=== PATIENT | male | born 1940 | race Two or more races ===

== ENCOUNTER → 2016-12-20 | Outpatient (CLI) | payer MEDICARE ==
--- NOTE | 2016-12-20 11:03 | MR ---
EXAMINATION TYPE: MR brain wo/w con DATE OF EXAM: 12/20/2016 COMPARISON: Patient's previous exams are not available correlation, exam is correlated to report of elba tong brain MRI HISTORY: syncope , ataxic gaiting TECHNIQUE: Multiplanar, multisequence images of the brain and brainstem is performed without and with IV contras t, utilizing 15 mL intravenous MultiHance . FINDINGS: Diffusion weighted images demonstrate no evidence of a recent infarct or other diffusion ab normality. There is no extra-axial fluid collection. Periventricular confluent hyperintensity and T 2 and inversion recovery sequences, hyperintensity within the john and centrum semiovale noted. There is cortical atrophy. The ventricular system and cisternal spaces are normal in size and appearance. Midline structures demonstrate normal morphology. The craniocervical junction appears within normal limits. Post contrast images demonstrate no abnormal enhancement. The dural venous sinuses appear pa tent. The visualized sinuses are remarkable for minimal inflammatory change in the sphenoid sinus, mu cosal thickening in the maxillary sinus and the globes are intact. IMPRESSION: Nonspecific white matter demyelination, age-related atrophy. Sinus disease.
== END ==
LOC: RADMRIMAIN 09:32
PROVIDERS: ATTEND Nurse Practitioner
DX: G31.1 Senile degeneration of brain, not elsewhere classified (principal); R90.89 Other abnormal findings on diagnostic imaging of central nervous system
CPT/HCPCS: 70553; A9577

== ENCOUNTER → 2019-12-25 | Day surgery (SDC) | payer MEDICARE ==
[~2019-12-25] MED LIST: ALPRAZolam 0.25 MG TAB PO STA
[2019-12-25 08:30] VITALS: RESP 16; TEMP 98.2
--- NOTE | 2019-12-25 12:24 | FL ---
EXAMINATION TYPE: FL guided lumbar puncture LP DATE OF EXAM: 12/25/2019 HISTORY: Normal pressure hydrocephalus Maximal barrier technique was utilized. The skin overlying the L3 transverse process was localized u nder fluoroscopy and the overlying skin prepped and draped. Lidocaine used for local anesthesia. 20 -gauge needle was advanced into the thecal sac under fluoroscopic guidance and cerebrospinal fluid wa s noted to return in the hub of the needle. 32 cc of cerebrospinal fluid were harvested for referring clinician. Opening pressure was obtained 14cm water, closing pressure obtained 9 cm water. A spot im age verified needle placement. 1 minute 35 seconds fluoroscopy time. Single image obtained. The patient remained in stable condition, the needle was removed. Hemostasis achieved. No immediate complication. IMPRESSION: Lumbar puncture for cerebrospinal fluid removal.
[2019-12-25 13:04] LABS: Glucose,CSF 56 mg/dL (40-70); Total Protein,CSF 29 mg/dL (12-60)
[2019-12-25 15:05] LABS: Appearance,CSF Clear; CSF Tube Number 4; CSF Tube Volume 8; Nucleated Cells, CSF 0 u/L (0-5); Red Blood Cell, CSF Crenated 0 %; Red Blood Cell, CSF Fresh 100 %; Red Blood Cell,CSF 214 u/L (0-10)
[2019-12-25 15:39] VITALS: BP 174/80; PULSE 74
== END ==
LOC: RADPROMAIN 07:58
PROVIDERS: ATTEND Family Medicine
DX: G91.2 (Idiopathic) normal pressure hydrocephalus (principal)
CPT/HCPCS: 62328; 82040; 82042; 82164; 82784; 82945; 83916; 84157; 87070; 87205; 87252; 88108; 89050

== ENCOUNTER 2020-12-23 16:13 | Inpatient (IN) | payer MEDICARE ==
[2020-12-23 16:36] LABS: Basophils # (A) 0.1 k/uL (0-0.2); Basophils % (A) 1 %; Eosinophils # (A) 0.3 k/uL (0-0.7); Eosinophils % (A) 3 %; HCT 45.4 % (39.0-53.0); HGB 15.6 gm/dL (13.0-17.5); Lymphocytes # (A) 1.9 k/uL (1.0-4.8); Lymphocytes % (A) 20 %; MCH 32.2 pg (25.0-35.0); MCHC 34.3 g/dL (31.0-37.0); MCV 93.9 fL (80.0-100.0); Mean Platelet Volume 7.2; Monocytes # (A) 0.4 k/uL (0-1.0); Monocytes % (A) 4 %; Neutrophils # (A) 6.6 k/uL (1.3-7.7); Neutrophils % (A) 71 %; Platelet Count 240 k/uL (150-450); RBC 4.83 m/uL (4.30-5.90); RDW 13.5 % (11.5-15.5); WBC 9.4 k/uL (3.8-10.6)
[2020-12-23 16:45] LABS: INR 0.9 (<1.2); Partial Thromboplastin Time 22.7 sec (22.0-30.0); Prothrombin Time 9.5 sec (9.0-12.0)
[2020-12-23] MEDS ORDERED: ASPIRIN 325 MG TAB PO STA (16:51)
--- NOTE | 2020-12-23 16:56 | ED ---
General Adult HPI - General Chief complaint: Recheck/Abnormal Lab/Rx Stated complaint: dizziness Time Seen by Provider: 12/23/20 16:25 Source: patient, EMS Mode of arrival: EMS Limitations: no limitations - History of Present Illness Initial comments: Dictation was produced using [employer] dictation software. please excuse any grammatical, word or spelling errors. Chief Complaint: 80-year-old male brought to the emergency department for abnormal MRI History of Present Illness: 80-year-old male who presents to the emergency department for abnormal MRI. Patient had MRI performed this morning showing acute lacunar infarct in the left basal ganglia. This MRI was ordered by his neurologist approximately one to 2 weeks ago. Patient has been dealing with years of ataxia. She feels at baseline. Denies any numbness that only pares thesias to arms or legs. Patient denies that his ataxia has gotten any worse in the last couple days. No other complaints at this time. Denies any history of stroke. The ROS documented in this emergency department record has been reviewed and confirmed by me. Those systems with pertinent positive or negative responses have been documented in the HPI. All other systems are other negative and/or noncontributory. PHYSICAL EXAM: General Impression: Alert and oriented x3, not in acute distress HEENT: Normocephalic atraumatic, extra-ocular movements intact, pupils equal and reactive to light bilaterally, mucous membranes moist. Cardiovascular: Heart regular rate and rhythm Chest: Able to complete full sentences, no retractions, no tachypnea Abdomen: abdomen soft, non-tender, non-distended, no organomegaly Musculoskeletal: Pulses present and equal in all extremities, no peripheral josemanuel a Motor: no focal deficits noted Neurological: CN II-XII grossly intact, no focal motor or sensory deficits noted, NIH 0 Skin: Intact with no visualized rashes Psych: Normal affect and mood ED course: 80 y Old male presents to the emergency Department for findings of CVA with MRI was performed this morning. Vital signs upon arrival are within acceptable limits. Patient had a candidate for TPA given that unclear with Avelox that was. Furthermore he does not have a clinical presentation christy picious for CVA. He's been having years of ataxia. No logical exam is benign. Patient given aspirin. Patient will be admitted to Dr. Lopez. Neurology on consult. EKG interpretation: Ventricular rate 91, normal sinus rhythm,. Interval 154, QRS 86, QTC 4:30. No NJ prolongation, no QTC prolongation, no ST or T-wave changes noted. Overall, this EKG is unremarkable - Related Data Home Medications Medication Instructions Recorded Confirmed Oxybutynin Chloride [Ditropan XL] 10 mg PO DAILY 12/23/19 12/25/19 Sertraline [Zoloft] 100 mg PO DAILY 12/23/19 12/23/19 Simvastatin [Zocor] 80 mg PO DAILY 12/23/19 12/23/19 Allergies Allergy/AdvReac Type Severity Reaction Status Date / Time No Known Allergies Allergy Verified 12/23/20 16:17 Review of Systems ROS Statement: Those systems with pertinent positive or pertinent negative responses have been documented in the HPI. ROS Other: All systems not noted in ROS Statement are negative. Past Medical History Past Medical History: Cancer, Hyperlipidemia Additional Past Medical History / Comment(s): symptomatic normal pressure hydrocephales, Bladder CA History of Any Multi-Drug Resistant Organisms: None Reported Past Surgical History: Appendectomy, Hernia Repair Additional Past Surgical History / Comment(s): shoulder surgery, upper spine spinal fusion. Past Anesthesia/Blood Transfusion Reactions: No Reported Reaction Past Psychological History: Depression Smoking Status: Current every day smoker Past Alcohol Use History: Rare Past Drug Use History: Marijuana - Past Family History Father Family Medical History: Coronary Artery Disease (CAD) General Exam Limitations: no limitations Course Vital Signs 12/23/20 16:18 Temperature 98.7 F Pulse Rate 92 Respiratory 20 Rate Blood Pressure 170/104 O2 Sat by Pulse 96 Oximetry Medical Decision Making - Lab Data Result diagrams: 12/23/20 16:29 Lab Results 12/23/20 12/23/20 Range/Units 16:29 16:29 WBC 9.4 (3.8-10.6) k/uL RBC 4.83 (4.30-5.90) m/uL Hgb 15.6 (13.0-17.5) gm/dL Hct 45.4 (39.0-53.0) % MCV 93.9 (80.0-100.0) fL MCH 32.2 (25.0-35.0) pg MCHC 34.3 (31.0-37.0) g/dL RDW 13.5 (11.5-15.5) % Plt Count 240 (150-450) k/uL MPV 7.2 Neutrophils % 71 % Lymphocytes % 20 % Monocytes % 4 % Eosinophils % 3 % Basophils % 1 % Neutrophils # 6.6 (1.3-7.7) k/uL Lymphocytes # 1.9 (1.0-4.8) k/uL Monocytes # 0.4 (0-1.0) k/uL Eosinophils # 0.3 (0-0.7) k/uL Basophils # 0.1 (0-0.2) k/uL PT 9.5 (9.0-12.0) sec INR 0.9 (<1.2) APTT 22.7 (22.0-30.0) sec Disposition Clinical Impression: CVA (cerebral vascular accident) Disposition: ADMITTED IP TO THIS HOSP Condition: Fair Referrals: Julia Pereira MD [Primary Care Provider] - 1-2 days
[2020-12-23] MEDS: SODIUM CHLORIDE 0.9% 1,000 ML IV SCH (17:00)
[2020-12-23 17:22] LABS: Calcium 9.3 mg/dL (8.4-10.2); Potassium 4.2 mmol/L (3.5-5.1)
[2020-12-23] MEDS ORDERED: hydrALAZINE HCL 20 MG/ML 1 ML VIAL IVP PRN (22:16)
[2020-12-23] MEDS: ATORVASTATIN 20 MG TAB PO SCH (22:53)
[2020-12-24] MEDS: NICOTINE 21MG/24HR PATCH TRANSDERM SCH (08:32)
[2020-12-24] MEDS: SERTRALINE 100 MG TAB PO SCH (08:32)
[2020-12-24] MEDS: OXYBUTYNIN 10 MG TAB.ER.24 PO SCH (08:32)
[2020-12-24] MEDS: ASPIRIN 325 MG TAB PO SCH (08:32)
[2020-12-24 12:31] LABS: Chol/HDL Ratio 3.24; LDL Cholesterol,Calculated 55.4 mg/dL (0.0-131.0); VLDL Calculation 38.6 mg/dL (5.00-40.00)
--- NOTE | 2020-12-24 13:28 | US ---
EXAMINATION TYPE: US carotid duplex BILAT DATE OF EXAM: 12/24/2020 COMPARISON: MR 2017, CLINICAL HISTORY: Acute stroke. patient had MRI at [facility] MRI showing basal ganglia CVA, EXAM MEASUREMENTS: RIGHT: Peak Systolic Velocity (PSV) cm/sec ----- Right CCA: 61.2 ----- Right ICA: 72.9 ----- Right ECA: 95.8 ICA/CCA ratio: 1.2 RIGHT: End Diastole cm/sec ----- Right CCA: 12.+ ----- Right ICA: 18.1 ----- Right ECA: 15.9 LEFT: Peak Systolic Velocity (PSV) cm/sec ----- Left CCA: 70.9 ----- Left ICA: 109.2 ----- Left ECA: 107.9 ICA/CCA ratio: 1.5 LEFT: End Diastole cm/sec ----- Left CCA: 14.0 ----- Left ICA: 20.6 ----- Left ECA: 18.0 VERTEBRALS (direction of flow): Right Vertebral: Antegrade Left Vertebral: Antegrade Rhythm: Normal Moderate, irregular, mixed plaque is seen in bilateral CCA, ECA, and ICA, but PSV is wnl bilaterally. IMPRESSION: 1. Extensive bilateral plaque with no significant hemodynamic stenosis bilaterally. NASCET criteria was used in interpretation of this exam? Criteria for Assigning % of Stenosis / Diameter reduction (Estimation based on the indirect measurements of the internal carotid artery velocities (ICA PSV). 1. Normal (no stenosis)=ICA PSV < 125 cm/s: ratio < 2.0: ICA EDV<40 cm/s. 2. Less than 50% stenosis=ICA PSV < 125 cm/s: ratio < 2.0: ICA EDV<40 cm/s. 3. 50 to 69% stenosis=ICA PSV of 125 to 230 cm/s: ration 2.0 ? 4.0: ICA EDV 40-100 cm/s. 4. Greater than 70% stenosis to near occlusion= ICA PSV > 230 cm/s: ratio > 4.0: ICA EDV > 100 cm/s. 5. Near occlusion= ICA PSV velocities may be low or undetectable: variable ratio and ICA EDV. 6. Total occlusion=unable to detect flow.
--- NOTE | 2020-12-24 13:55 | P.HPIM ---
History of Present Illness H&P Date: 12/24/20 Jimi Dick, is an 80-year-old is male who presented to [facility] emergency room with a chief complaint of weakness and dizziness and abnormal MRI done as outpatient revealing acute lacunar infarct within the left basal ganglia, patient was sent to emergency room for further evaluation. Patient stated that he has been feeling weak and dizzy and and steady with his gait for several weeks he was referred to a neurologist Dr. Conrad who performed an outpatient brain MRI, that showed above results, patient denies weakness involving 1 of the extremities more than others he denies any change in his vision or his speech He was evaluated in the emergency room vital examination on presentation revealed a temperature of 98.7 pulse 92 respiration 20 blood pressure 170/104 pulse ox 96% on room air Laboratory data reveals a white blood count of 9.4 hemoglobin 15.6 platelet count 240 sodium 139 potassium 4.2 chloride 108 CO2 24 BUN 19 creatinine 0.99 Testing in the emergency room revealed EKG was done in the emergency room and revealed normal sinus rhythm normal EKG Patient was admitted to medical floor for further evaluation and treatment, echocardiogram and carotid Doppler were ordered neurology consultation was requested Past medical history is significant for history of chronic tobacco use, history of hyperlipidemia, history of depression, otherwise patient denies any previous history of hypertension, coronary artery disease, congestive heart failure, he also denies any previous history of TIA or stroke in the past. Past Medical History Past Medical History: Cancer, Hyperlipidemia Additional Past Medical History / Comment(s): symptomatic normal pressure hydrocephales, Bladder cancer History of Any Multi-Drug Resistant Organisms: None Reported Past Surgical History: Appendectomy, Hernia Repair Additional Past Surgical History / Comment(s): shoulder surgery, upper spine spinal fusion. Past Anesthesia/Blood Transfusion Reactions: No Reported Reaction Past Psychological History: Depression Additional Psychological History / Comment(s): R/t health issues Smoking Status: Current every day smoker Past Alcohol Use History: Rare Additional Past Alcohol Use History / Comment(s): 1/2 -1 packs per day Past Drug Use History: Marijuana Additional Drug Use History / Comment(s): Nightly medicinal marijuana - Past Family History Father Family Medical History: Coronary Artery Disease (CAD), Myocardial Infarction (PR) Medications and Allergies Home Medications Medication Instructions Recorded Confirmed Type Oxybutynin Chloride [Ditropan XL] 10 mg PO DAILY 12/23/19 12/23/20 History Aspirin EC [Ecotrin Low Dose] 81 mg PO Q72H 12/23/20 12/23/20 History Aspirin EC [Ecotrin Low Dose] 324 mg PO ONCE PRN 12/23/20 12/23/20 History Sertraline [Zoloft] 100 mg PO DAILY 12/23/20 12/23/20 History Simvastatin [Zocor] 40 mg PO HS 12/23/20 12/23/20 History Allergies Allergy/AdvReac Type Severity Reaction Status Date / Time No Known Allergies Allergy Verified 12/23/20 17:23 Physical Exam Vitals: Vital Signs Temp Pulse Pulse Resp BP BP Pulse Ox 12/24/20 08:00 98.1 F 69 18 147/82 97 12/24/20 03:20 97.6 F 69 18 145/77 96 12/23/20 23:36 97.8 F 63 20 143/69 98 12/23/20 21:00 98.0 F 72 18 169/90 98 12/23/20 20:10 85 20 178/98 97 12/23/20 18:47 98.0 F 99 20 169/97 98 12/23/20 17:00 95 20 148/93 97 12/23/20 16:18 98.7 F 92 20 170/104 96 Intake and Output 12/23/20 12/24/20 12/24/20 22:59 06:59 14:59 Intake Total 540 Output Total 200 700 Balance -200 -160 Intake: Oral 540 Output: Urine 200 700 Other: Voiding Method Toilet Toilet Diaper Diaper # Voids 1 Weight 74.843 kg 75.3 kg In general patient is alert and oriented x 3 in no distress HEENT head normocephalic and atraumatic Neck is supple no JVD no goiter no lymphadenopathy no carotid bruit Chest examination is clear to auscultation no crackles no wheezing Cardiac exam reveals regular heart sounds S1 and S2 no gallops no murmurs Abdomen is soft nontender no organomegaly with normal bowel sounds Extremity exam reveals no edema no cyanosis or clubbing Neurological examination reveals patient is alert and oriented 3, cranial nerve II-12 are intact There is no lateralizing weakness or sensory deficit in any of the extremities Results CBC & Chem 7: 12/23/20 16:29 12/23/20 16:29 Labs: Abnormal Lab Results - Last 24 Hours (Table) 12/23/20 Range/Units 16:29 Chloride 108 H (98-107) mmol/L Thrombosis Risk Factor Assmnt - Choose All That Apply Other Risk Factors: Yes Each Risk Factor Represents 3 Points: Age 75 years or older Other congenital or acquired thrombophilia - If yes, enter type in comment: Yes Each Risk Factor Represents 5 Points: Stroke (< 1 month) Thrombosis Risk Factor Assessment Total Risk Factor Score: 8 Thrombosis Risk Factor Assessment Level: High Risk Assessment and Plan Plan: 1. Acute left basal ganglia lacunar infarct 2. Tobacco abuse, patient was counseled in length in regard to smoking cessation, a nicotine patch was applied 3. Elevated blood pressure on presentation, no previous history of hypertension, will monitor blood pressure and add medications if necessary 4. Underlying history of hyperlipidemia 5. Underlying history of depression Patient is admitted to telemetry floor Echocardiogram and carotid Doppler were ordered Cardiology consultation and neurology consultation were requested Physical therapy and occupational therapy were requested Will follow closely
[2020-12-24] MEDS: SODIUM CHLORIDE 0.9% 1,000 ML IV SCH (17:00)
--- NOTE | 2020-12-24 17:23 | P.CNNES ---
History of Present Illness Consult date: 12/24/20 Requesting physician: Reese Interiano Reason for Consult: CVA History of Present Illness: Patient is a 80-year-old male came to the hospital yesterday at 4:13 PM by ambulance. EMS flow sheet not available in the chart. According to ED report, patient had an MRI of the brain performed the morning of admission at outside facility, ordered by his neurologist about 2 weeks ago. The MRI revealed evidence of a lacunar stroke involving the left basal ganglia for which patient was transferred to the ER. Patient has history of gait imbalance progressively getting worse for last 5-10 years. He falls "now and then". He believes his quality of life is decreasing. In the last 5 months he has developed "sick tongue" with slurred speech, which also seems to be getting worse. He does not believe that the slurred speech changes with fatigue or worse at end of the day. It stays like it is throughout the day. Patient does not believe that he has several up any new focal symptoms since last few days. Denies any worsening of slurred speech. Patient denies any droopy face, diplopia, ptosis, or any muscle atrophy or fasciculations. He has noted weight loss of 10 pounds. He has been using cane for last 5 years, but in the last 1 year he has been using walker because of worsening balance. At present he lives with his . He denies any family history of ataxia. Denies diabetes or hypertension. He has smoked half pack per day for 65 years. Still smokes. Patient has mild dysphagia for solids, as it sometimes gets stuck up in the throat and has to cough it up. He feels it slightly worse. He somet imes drools. Patient states that he used to binge drink on the weekends. On the weekdays he would not drink. He has done this all his life. However since he started having gait difficulty, he has significantly cut back on drinking, now drinks slightly once a week. Patient denies any numbness or tingling in the arms or legs. Denies any neck or low back pain. He does have mild leaking of urine for last 1 year, which is getting worse. Patient's vital signs on arrival blood pressure 170/104, pulse rate 92, temperature 98.7. EKG shows normal sinus rhythm. Patient takes simvastatin 40 mg, aspirin 81 mg every 72 hours, Zoloft 100 mg and oxybutynin. MRI of the brain without contrast on 12/23/2020 revealed acute lacunar infarct within the left basal ganglia. Severe chronic small vessel ischemic disease, including within the deep watershed distribution. Patient had an old MRI of the brain with and without contrast performed on 12/20/2016 for "syncope, ataxic gait gaiting", which had revealed nonspecific white matter demyelination, age- related atrophy, sinus disease. Review of Systems As above in detail. All other review of systems reviewed and unremarkable. Past Medical History Past Medical History: Cancer, Hyperlipidemia Additional Past Medical History / Comment(s): symptomatic normal pressure hydrocephales, Bladder cancer History of Any Multi-Drug Resistant Organisms: None Reported Past Surgical History: Appendectomy, Hernia Repair Additional Past Surgical History / Comment(s): shoulder surgery, upper spine spinal fusion. Past Anesthesia/Blood Transfusion Reactions: No Reported Reaction Past Psychological History: Depression Additional Psychological History / Comment(s): R/t health issues Smoking Status: Current every day smoker Past Alcohol Use History: Rare Additional Past Alcohol Use History / Comment(s): 1/2 -1 packs per day Past Drug Use History: Marijuana Additional Drug Use History / Comment(s): Nightly medicinal marijuana - Past Family History Father Family Medical History: Coronary Artery Disease (CAD), Myocardial Infarction (HI) Medications and Allergies Home Medications Medication Instructions Recorded Confirmed Type Oxybutynin Chloride [Ditropan XL] 10 mg PO DAILY 12/23/19 12/23/20 History Aspirin EC [Ecotrin Low Dose] 81 mg PO Q72H 12/23/20 12/23/20 History Aspirin EC [Ecotrin Low Dose] 324 mg PO ONCE PRN 12/23/20 12/23/20 History Sertraline [Zoloft] 100 mg PO DAILY 12/23/20 12/23/20 History Simvastatin [Zocor] 40 mg PO HS 12/23/20 12/23/20 History Allergies Allergy/AdvReac Type Severity Reaction Status Date / Time No Known Allergies Allergy Verified 12/23/20 17:23 Physical Examination - Vital Signs Vital Signs: Vital Signs Temp Pulse Pulse Resp BP BP Pulse Ox 12/24/20 08:00 98.1 F 69 18 147/82 97 12/24/20 03:20 97.6 F 69 18 145/77 96 12/23/20 23:36 97.8 F 63 20 143/69 98 12/23/20 21:00 98.0 F 72 18 169/90 98 12/23/20 20:10 85 20 178/98 97 12/23/20 18:47 98.0 F 99 20 169/97 98 12/23/20 17:00 95 20 148/93 97 12/23/20 16:18 98.7 F 92 20 170/104 96 Intake and Output 12/23/20 12/24/20 12/24/20 22:59 06:59 14:59 Intake Total 540 Output Total 200 700 Balance -200 -160 Intake: Oral 540 Output: Urine 200 700 Other: Voiding Method Toilet Toilet Diaper Diaper # Voids 1 Weight 74.843 kg 75.3 kg Patient is an elderly male, in no acute distress. Patient is very pleasant. Patient is alert awake oriented to time place and person. Patient knows it is December 2020 and that he is in [facility] in [place], his date of and name of the current president. Speech is mildly dysarthric, but no aphasia. Attention, concentration and fund of knowledge is adequate. On cranial examination, pupils are round and reacting to light, visual dale are full on confrontation, extraocular muscles are intact. He has quite prominent downbeat nystagmus in the and gaze more than in the primary gaze. Patient has mild left flattening of the nasolabial fold, which resolves with active testing of the face. Patient's tongue protrudes to the midline. No obvious fasciculations of the tongue noted. Palatal elevation and sensation normal, hearing and shoulder shrug normal, facial sensation normal. On muscle strength testing, there is no pronator drift and the strength is normal in arms and legs distally and proximally. Deep tendon reflexes are symmetric, 1+ to 2 in the upper limbs at biceps and brachioradialis, 3 in the lower limbs at knees and ankles and plantars are downgoing. No clonus. Sensory to touch is equal with no neglect. Cerebellar function revealed mild ataxia for [id number] testing, but moderate ataxia for [id number] testing bilaterally. Patient has mild dysdiadochokinesia. Tone and bulk of muscles normal. Gait patient walks with wide base. Patient is very off balance. High fall risk. On general examination, there is no carotid bruit or murmur, S1-S2 audible. Abdomen is soft nontender. Chest is clear. Peripheral pulses are present. No edema. Results - Laboratory Findings CBC and BMP: 12/23/20 16:29 12/23/20 16:29 Abnormal Lab Findings: Abnormal Labs 12/23/20 16:29 Chloride 108 H Assessment and Plan Assessment: * Progressive cerebellar ataxia, unclear etiology. Differential diagnosis includes hereditary cerebellar ataxia (though no family history of ataxia), degenerative, or paraneoplastic. Patient has history of alcoholism in the past, but does not appear to be the major cause. Rule out nutritional causes * Incidental finding of small lacunar stroke left basal ganglia. CD of the MRI not available, as it was performed at outside facility. * Severe small vessel disease reported on MRI. Main vascular risk factors hypertension and tobacco use. * Hyperlipidemia * Hypertension * Unintentional weight loss. * Chronic tobacco use 1/2 pack per day for 65 years. Plan: * Agree with starting aspirin 325 mg daily for acute stroke. I would avoid dual antiplatelet medication because of fall risk (and minimal stroke symptoms). * Carotid Doppler revealed extensive bilateral plaque with no significant hemodynamic stenosis bilaterally. Antegrade flow in both vertebral arteries. * 2-D echo has been completed, results pending. * Fasting lipid panel and hemoglobin A1c. * Telemetry monitoring. * Regarding progressive ataxia, patient will undergo detailed blood tests as mentioned in the order section. Suggest computed tomography scan of chest abdomen and pelvis to rule out any occult malignancy (can be performed as outpatient). Patient has undergone colonoscopy and has prostate examination checked in the recent past. * PT OT, evaluate gait. * Speech therapy * We will try to obtain CD of MRI from outside facility for our review. Time with Patient: Greater than 30
--- NOTE | 2020-12-24 18:00 | ECHOF ---
Referral Reason:Acute stroke MEASUREMENTS -------- HEIGHT: 172.7 cm WEIGHT: 75.3 kg BP: IVSd: 1.2 cm (0.6 - 1.1) LVIDd: 3.8 cm (3.9 - 5.3) LVPWd: 1.6 cm (0.6 - 1.1) IVSs: 2.2 cm LVIDs: 2.5 cm LVPWs: 1.9 cm LAESV Index (A-L): 20.65 ml/m Ao Diam: 3.2 cm (2.0 - 3.7) AV Cusp: 2.0 cm (1.5 - 2.6) LA Diam: 2.6 cm (2.7 - 3.8) MV EXCURSION: 15.965 mm (> 18.000) MV EF SLOPE: 106 mm/s (70 - 150) EPSS: 0.8 cm MV E Александр: 0.75 m/s MV DecT: 253 ms MV A Александр: 0.95 m/s MV E/A Ratio: 0.78 RAP: 5.00 mmHg RVSP: 13.19 mmHg FINDINGS -------- This was a technically good study. The left ventricular size is normal. There is mild concentric left ventricular hypertrophy. Overa ll left ventricular systolic function is normal with, an EF between 55 - 60 %. Normal LAP Grade 1 D iastolic Dysfunction. The right ventricle is normal in size. The left atrial size is normal. Normal LA size by volume 22+/-6 ml/m2. The right atrial size is normal. The aortic valve is trileaflet and appears structurally normal. The mitral valve is normal. There is trace mitral regurgitation. The tricuspid valve appears structurally normal. Trace tricuspid regurgitation present. Right mark tricular systolic pressure is normal at < 35 mmHg. There is no pulmonic regurgitation present. The aortic root size is normal. Normal inferior vena cava with normal inspiratory collapse consistent with estimated right atrial pre ssure of 5 mmHg. There is no pericardial effusion. CONCLUSIONS -------- 1. The left ventricular size is normal. 2. There is mild concentric left ventricular hypertrophy. 3. Overall left ventricular systolic function is normal with, an EF between 55 - 60 %. 4. Normal LAP Grade 1 Diastolic Dysfunction. 5. There is trace mitral regurgitation. 6. Trace tricuspid regurgitation present. 7. There is no pericardial effusion. TEST PILOT: Maribell Overton RDCS
--- NOTE | 2020-12-24 19:19 | CONS ---
CONSULTATION Mr. Dick is an 80-year-old male with history of chronic tobacco use, history of hyperlipidemia, who presents because of an abnormal MRI. The patient had ataxia and dizziness as well as an episode of speech disturbance with what he is describing as a thick tongue going on for a while. He has been evaluated by multiple neurologists here in [facility] as well as in [place] and was evaluated for possible normal-pressure hydrocephalus and that came back negative, but he continued to have progressive symptoms getting worse and because of that, he had an MRI done yesterday at Dr. Conrad's office that apparently was reported showing acute lacunar infarct in the left basal ganglia, the report is not available to me and because of that, was referred to the emergency room today and subsequently admitted. The patient has no acute changes in his symptoms. He continues to have the ataxia and the dizziness but had no associated palpitation. He is quite frustrated with the progressive symptoms going on for the last few years. He has no peripheral edema. No PND. No orthopnea. No chest discomfort. No history of cardiac arrhythmia or cardiac abnormalities. His coronary risk factors are remarkable for the smoking and the hyperlipidemia. He is nondiabetic. No hypertension. MEDICATIONS: His medications at home include: Simvastatin 40 mg daily, Zoloft 100 mg daily, Ditropan, aspirin once a day. REVIEW OF SYSTEMS: Respiratory system: He has no history of documented asthma, emphysema or bronchitis. GI system: No recent GI bleeding. No peptic ulcer disease. system: No dysuria or hematuria. NERVOUS SYSTEM: No documented stroke according to him in the past. PHYSICAL EXAMINATION: He is an 80-year-old male, alert, oriented, no apparent distress. Blood pressure 147/80 with a heart rate in the 60s. On presentation to the emergency room, his blood pressure was elevated in the 160s to 170s. HEAD: Normocephalic. Eyes sclerae anicteric. NECK: Good carotid upstroke. No bruit. No jugular venous distention. LUNGS: Clear to auscultation. Heart is regular rate and rhythm, S1, S2. No S3. No S4. No rub or gallop. ABDOMEN: Soft, nontender. Positive bowel sounds. No organomegaly. EXTREMITIES: No edema. Intact distal pulses. LAB DATA: Potassium 4.2, BUN and creatinine 19 and 0.99. Cholesterol 136, LDL of 55. Hemoglobin of 15.6. EKG revealed a sinus mechanism, normal axis and intervals. Normal electrocardiogram. IMPRESSION: 1. Progressive symptoms of ataxia, dizziness as well as speech disturbance, etiology unclear. His symptoms have been going on for the last few years. The patient had an abnormal MRI yesterday. The report is not available to me. 2. Hyperlipidemia. 3. Chronic tobacco use. RECOMMENDATIONS: From the cardiac standpoint, I see no cardiac etiology to his neurological presentation. There is no evidence of arrhythmia on examination. There is no evidence to suggest valvular abnormalities. He will obtain an echocardiogram with Doppler to evaluate the left ventricular systolic function. We will continue monitoring on the telemetry and depending on his progress, further recommendations will be made. The patient will be seen by the Neurology Service and we will try to obtain the report of his MRI. Thank you for this consult. We will follow with you. GYPSY / OPHELIA: [id number] /
[2020-12-24] MEDS: ATORVASTATIN 20 MG TAB PO SCH (20:10)
[2020-12-24] MEDS ORDERED: ZOLPIDEM 5 MG TAB PO PRN (23:51)
[2020-12-25 01:23] LABS: Hemoglobin A1C 5.5 % (4.0-6.0)
[2020-12-25 08:05] LABS: Basophils # (A) 0.1 k/uL (0-0.2); Basophils % (A) 1 %; Eosinophils # (A) 0.4 k/uL (0-0.7); Eosinophils % (A) 3 %; HCT 49.1 % (39.0-53.0); HGB 16.9 gm/dL (13.0-17.5); Lymphocytes # (A) 1.9 k/uL (1.0-4.8); Lymphocytes % (A) 18 %; MCH 32.9 pg (25.0-35.0); MCHC 34.5 g/dL (31.0-37.0); MCV 95.3 fL (80.0-100.0); Monocytes # (A) 0.5 k/uL (0-1.0); Monocytes % (A) 4 %; Neutrophils # (A) 7.8 k/uL (1.3-7.7); Neutrophils % (A) 73 %; Platelet Count 252 k/uL (150-450); RBC 5.15 m/uL (4.30-5.90); RDW 13.2 % (11.5-15.5); WBC 10.7 k/uL (3.8-10.6)
[2020-12-25 08:19] LABS: ALT 15 U/L (4-49); AST 23 U/L (17-59); African American GFR (CKD) >90 (>60 ml/min/1.73 sqM); Alkaline Phosphatase 93 U/L (38-126); Anion Gap 9 mmol/L; Blood Urea Nitrogen 20 mg/dL (9-20); Calcium 9.5 mg/dL (8.4-10.2); Carbon Dioxide 26 mmol/L (22-30); Chloride 105 mmol/L (98-107); Glucose 114 mg/dL (74-99); Non-African American GFR(CKD) 78 (>60 ml/min/1.73 sqM); Potassium 4.2 mmol/L (3.5-5.1); Sodium 140 mmol/L (137-145); Total Bilirubin 0.8 mg/dL (0.2-1.3); Total Protein 6.8 g/dL (6.3-8.2)
[2020-12-25] MEDS: NICOTINE 21MG/24HR PATCH TRANSDERM SCH (09:04)
[2020-12-25] MEDS: SERTRALINE 100 MG TAB PO SCH (09:05)
[2020-12-25] MEDS: OXYBUTYNIN 10 MG TAB.ER.24 PO SCH (09:05)
[2020-12-25] MEDS: ASPIRIN 325 MG TAB PO SCH (09:05)
--- NOTE | 2020-12-25 10:59 | P.DS ---
Providers Date of admission: 12/23/20 16:51 Expected date of discharge: 12/25/20 Attending physician: Hans Lopez Consults: 12/23/20 16:56 Consult Physician Routine Consulting Provider: Shanda Odonnell Consult Reason/Comments: CVA Do you want consulting provider notified?: Yes 12/24/20 12:06 Consult Physician Routine Consulting Provider: lOivia Berry Consult Reason/Comments: Acute basal ganglia lacunar infarct Do you want consulting provider notified?: Yes Primary care physician: Julia Pereira Assessment: Discharge diagnosis 1. Acute left basal ganglia lacunar infarct 2. Tobacco abuse, patient was counseled in length in regard to smoking cessation, a nicotine patch was applied 3. Elevated blood pressure on presentation, no previous history of hypertension, will monitor blood pressure and add medications if necessary 4. Underlying history of hyperlipidemia 5. Underlying history of depression Hospital course Jimi Dick, is an 80-year-old is male who presented to [facility] emergency room with a chief complaint of weakness and dizziness and abnormal MRI done as outpatient revealing acute lacunar infarct within the left basal ganglia, patient was sent to emergency room for further evaluation. Patient stated that he has been feeling weak and dizzy and and steady with his gait for several weeks he was referred to a neurologist Dr. Conrad who performed an outpatient brain MRI, that showed above results, patient denies weakness involving 1 of the extremities more than others he denies any change in his vision or his speech He was evaluated in the emergency room vital examination on presentation revealed a temperature of 98.7 pulse 92 respiration 20 blood pressure 170/104 pulse ox 96% on room air Laboratory data reveals a white blood count of 9.4 hemoglobin 15.6 platelet count 240 sodium 139 potassium 4.2 chloride 108 CO2 24 BUN 19 creatinine 0.99 Testing in the emergency room revealed EKG was done in the emergency room and revealed normal sinus rhythm normal EKG Patient was admitted to medical floor for further evaluation and treatment, echocardiogram and carotid Doppler were ordered neurology consultation was requested Past medical history is significant for history of chronic tobacco use, history of hyperlipidemia, history of depression, otherwise patient denies any previous history of hypertension, coronary artery disease, congestive heart failure, he also denies any previous history of TIA or stroke in the past. 2-D echo completed showing an EF of 55-60%. Carotid Doppler completed showing extensive bilateral plaque with no significant hemodynamic stenosis bilaterally Patient was evaluated by cardiology services no cardiac etiology to explain neurological presentation no evidence of arrhythmia On 12/25/2020 patient is alert and oriented 3. Patient stresses that he is eager to go home. Patient was evaluated by neurology and recommend patient starting on aspirin 325 daily for acute stroke would avoid dual antiplatelet medical case and because of fall risk. Per neurology regarding progressive ataxia patient will undergo detailed blood test inpatient results currently pending. Per neurology suggest computed tomography scan of chest abdomen and pelvis to rule out any occult malignancy this can be performed outpatient by PCP. At this time patient denies chest pain or shortness of breath. Patient denies nausea vomiting or diarrhea. Patient denies any urinary burning or frequency Patient Condition at Discharge: Stable Plan - Discharge Summary Discharge Rx Participant: No New Discharge Prescriptions: New Nicotine 21Mg/24Hr Patch [Habitrol] 1 patch TRANSDERM DAILY 30 Days #30 patch Aspirin 325 mg PO DAILY 30 Days #30 tab Continue Oxybutynin Chloride [Ditropan XL] 10 mg PO DAILY Sertraline [Zoloft] 100 mg PO DAILY Simvastatin [Zocor] 40 mg PO HS Discontinued Aspirin EC [Ecotrin Low Dose] 81 mg PO Q72H Aspirin EC [Ecotrin Low Dose] 324 mg PO ONCE PRN PRN Reason: Pain Discharge Medication List Oxybutynin Chloride [Ditropan XL] 10 mg PO DAILY 12/23/19 [History] Sertraline [Zoloft] 100 mg PO DAILY 12/23/20 [History] Simvastatin [Zocor] 40 mg PO HS 12/23/20 [History] Aspirin 325 mg PO DAILY 30 Days #30 tab 12/25/20 [Rx] Nicotine 21Mg/24Hr Patch [Habitrol] 1 patch TRANSDERM DAILY 30 Days #30 patch 12/25/20 [Rx] Follow up Appointment(s)/Referral(s): Julia Pereira MD [Primary Care Provider] - 1-2 days
[2020-12-25 12:18] LABS: Chol/HDL Ratio 3.25; Cholesterol 143 mg/dL (0-200)
[2020-12-25 12:25] LABS: Zinc, Serum 54 ug/dL (60-130)
--- NOTE | 2020-12-25 13:02 | PN ---
PROGRESS NOTE Mr. Dick is an 80-year-old male who had symptoms of ataxia and dizziness with an episode of speech disturbance. He was admitted to the hospital because of an abnormal MRI. He has no chest discomfort. No palpitations. On the monitor he is in sinus mechanism. He has been evaluated by Neurology Service to undergo further workup for the etiology of his symptoms. He has no clear PND or orthopnea. He has a history of hyperlipidemia and chronic tobacco use. He underwent an echocardiogram yesterday that revealed a preserved left ventricular size and systolic function. He had a carotid duplex scan done as well that showed no significant obstructive disease with bilateral plaquing. He continues to be at this time on aspirin once a day, atorvastatin 20 mg daily, and a nicotine patch. PHYSICAL EXAMINATION: Blood pressure is running in the 130s with a heart rate in the 70s. LUNGS: Clear. HEART: Regular rate and rhythm. S1, S2. No S3. No rub. ABDOMEN: Soft, nontender. EXTREMITIES: No edema. LAB DATA: Lab data revealed a BUN and creatinine of 20 and 0.92, potassium 4.2, hemoglobin of 16.9. IMPRESSION: 1. Symptoms of ataxia and speech disturbance going on for a while. Workup in progress. 2. Small lacunar stroke in the left basal ganglia. 3. Hyperlipidemia. 4. Hypertension. 5. Chronic tobacco use. RECOMMENDATIONS: From the cardiac standpoint, I do not see any evidence to suggest cardiac etiology to his symptoms. No further cardiac workup will be needed at this time. We will be seeing him on an as-needed basis. Please feel free to call us for any question. MMODL / IJN: [id number] /
[2020-12-25 13:42] LABS: Folate, Serum 11.7 ng/mL
[2020-12-25 13:45] VITALS: BP 141/77; PULSE 72; RESP 20; TEMP 97.9
[2020-12-28 09:00] LABS: Vitamin E (Alpha Tocopherol) 998 ug/dL (500-1800)
== END 2020-12-25 14:55 | disposition home or self-care (01) | DRG 66 ==
LOC: EC 16:13 → 3SCARD 16:51
PROVIDERS: ADMIT Internal Medicine; ATTEND Internal Medicine
DX: I63.81 Other cerebral infarction due to occlusion or stenosis of small artery (principal); E78.5 Hyperlipidemia, unspecified; Z85.51 Personal history of malignant neoplasm of bladder; F17.200 Nicotine dependence, unspecified, uncomplicated; F32.9 Major depressive disorder, single episode, unspecified; Z82.49 Family history of ischemic heart disease and other diseases of the circulatory system; I10 Essential (primary) hypertension; Z98.1 Arthrodesis status; Z79.82 Long term (current) use of aspirin; R63.4 Abnormal weight loss; Z68.24 Body mass index [BMI] 24.0-24.9, adult; R47.9 Unspecified speech disturbances; Z79.899 Other long term (current) drug therapy; R13.10 Dysphagia, unspecified; I67.89 Other cerebrovascular disease; Z91.81 History of falling; R27.0 Ataxia, unspecified
CPT/HCPCS: 36415; 80048; 80053; 80061; 82607; 82746; 83036; 83519; 84207; 84446; 84630; 85025; 85610; 85652; 85730; 86038; 86235; 93005; 93306; 93880

== ENCOUNTER 2022-01-21 13:49 | Inpatient (IN) | payer MEDICARE ==
[2022-01-21] MEDS ORDERED: NALOXONE 0.4 MG/ML 1 ML VIAL IV PRN (13:52)
[2022-01-21] MEDS ORDERED: HEPARIN SODIUM 1,000 UN/ML (10ML VL) MISCELLANE ONE (13:55)
[2022-01-21] MEDS ORDERED: ATORVASTATIN 80 MG TAB PO STA (13:57)
[2022-01-21] MEDS ORDERED: fentaNYL (PF) 50 MCG/ML 2 ML AMP ONE (13:57)
--- NOTE | 2022-01-21 13:58 | ED ---
General Adult HPI - General Stated complaint: possible stemi Time Seen by Provider: 01/21/22 13:50 Source: patient, RN notes reviewed, old records reviewed Limitations: no limitations - History of Present Illness Initial comments: 81-year-old male presents as out of Hospital ST segment elevated [place]. Patient had EKG performed by paramedics after they were called for acute onset dyspnea, lightheadedness and chest pressure. Patient has no prior history of CAD. He is a current smoker. This was associated with nausea and diaphoresis. [facility] activated prehospital. - Related Data Home Medications Medication Instructions Recorded Confirmed Oxybutynin Chloride [Ditropan XL] 10 mg PO DAILY 12/23/19 12/23/20 Sertraline [Zoloft] 100 mg PO DAILY 12/23/20 12/23/20 Simvastatin [Zocor] 40 mg PO HS 12/23/20 12/23/20 Previous Rx's Medication Instructions Recorded Aspirin 325 mg PO DAILY 30 Days #30 tab 12/25/20 Nicotine 21Mg/24Hr Patch [Habitrol] 1 patch TRANSDERM DAILY 30 Days 12/25/20 #30 patch Allergies Allergy/AdvReac Type Severity Reaction Status Date / Time No Known Allergies Allergy Verified 12/23/20 17:23 Review of Systems ROS Statement: Those systems with pertinent positive or pertinent negative responses have been documented in the HPI. ROS Other: All systems not noted in ROS Statement are negative. Past Medical History Past Medical History: Cancer, Hyperlipidemia Additional Past Medical History / Comment(s): symptomatic normal pressure hydrocephales, Bladder cancer History of Any Multi-Drug Resistant Organisms: None Reported Past Surgical History: Appendectomy, Hernia Repair Additional Past Surgical History / Comment(s): shoulder surgery, upper spine spinal fusion. Past Anesthesia/Blood Transfusion Reactions: No Reported Reaction Past Psychological History: Depression Additional Psychological History / Comment(s): R/t health issues Smoking Status: Current every day smoker Past Alcohol Use History: Rare Additional Past Alcohol Use History / Comment(s): 1/2 -1 packs per day Past Drug Use History: Marijuana Additional Drug Use History / Comment(s): Nightly medicinal marijuana - Past Family History Father Family Medical History: Coronary Artery Disease (CAD), Myocardial Infarction ([place]) General Exam General appearance: alert, in distress Head exam: Present: atraumatic, normocephalic Eye exam: Present: normal appearance, PERRL ENT exam: Present: normal exam Neck exam: Present: normal inspection. Absent: tenderness, meningismus Respiratory exam: Present: normal lung sounds bilaterally. Absent: respiratory distress, wheezes Cardiovascular Exam: Present: regular rate, normal rhythm GI/Abdominal exam: Present: soft. Absent: distended, tenderness Extremities exam: Present: normal inspection, normal capillary refill. Absent: pedal edema Neurological exam: Present: alert, oriented X3, CN II-XII intact. Absent: motor sensory deficit Psychiatric exam: Present: normal affect, normal mood Skin exam: Present: diaphoretic EKG Findings - EKG Comments: EKG Findings:: EKG: Sinus rhythm with ST segment elevation in lead aVF PVC. Reciprocal depression in aVL and the lateral precordial leads rate of 72, MI interval 161, QRS duration 102, QTC 423. Prehospital EKG shows clear inferior [place] Medical Decision Making - Medical Decision Making 84-year-old male with inferior STEMI taken immediately to the [facility]. X-ray laboratory studies pending, patient evaluated by Dr. Samuel in the emergency department will be admitted to Dr. Lopez. Disposition Clinical Impression: ST elevation myocardial infarction (STEMI) Disposition: ADMITTED IP TO THIS HOSP Condition: Stable Is patient prescribed a controlled substance at d/c from ED?: No Referrals: Julia Pereira MD [Primary Care Provider] - 1-2 days Time of Disposition: 13:57
[2022-01-21] MEDS ORDERED: HEPARIN SODIUM 1,000 UN/ML (10ML VL) ONE (14:01)
[2022-01-21 14:05] LABS: Basophils # (A) 0.1 k/uL (0-0.2); Basophils % (A) 0 %; Eosinophils # (A) 0.2 k/uL (0-0.7); Eosinophils % (A) 1 %; HCT 46.2 % (39.0-53.0); Lymphocytes # (A) 1.4 k/uL (1.0-4.8); Lymphocytes % (A) 9 %; MCH 31.1 pg (25.0-35.0); MCHC 32.5 g/dL (31.0-37.0); MCV 95.9 fL (80.0-100.0); Mean Platelet Volume 7.4; Monocytes # (A) 0.6 k/uL (0-1.0); Monocytes % (A) 4 %; Neutrophils # (A) 13.5 k/uL (1.3-7.7); Neutrophils % (A) 85 %; Platelet Count 253 k/uL (150-450); RBC 4.81 m/uL (4.30-5.90); RDW 13.6 % (11.5-15.5); WBC 15.8 k/uL (3.8-10.6)
[2022-01-21] MEDS ORDERED: LIDOCAINE 1% INJ 10MG/ML (30 ML VIAL-PF) SQ ONE ×2 (14:08→14:10)
[2022-01-21] MEDS ORDERED: IV FLUID CONTINUATION 1,000 ML IV ONE (14:09)
[2022-01-21] MEDS ORDERED: MIDAZOLAM 2 MG/2 ML VIAL IV ONE (14:09)
[2022-01-21] MEDS ORDERED: fentaNYL (PF) 50 MCG/ML 2 ML AMP IV ONE (14:09)
--- NOTE | 2022-01-21 14:14 | XR ---
EXAMINATION TYPE: XR chest 1V portable DATE OF EXAM: 01/21/2022 COMPARISON: NONE HISTORY: chest pain TECHNIQUE: Single frontal view of the chest is obtained. FINDINGS: Postsurgical change overlying cervical spine with diffuse osteopenia and arthropathy of th e AC joints. Heart size normal rest limited inspiration. There is coarsened interstitium suggestive o f chronic interstitial lung disease. Hypertrophic degenerative change of the spine. No focal pneumoni a. Density in the right apex likely represents prominent anterior margin of the first rib and could b e followed on subsequent PA and lateral view of the chest. IMPRESSION: 1. Correlate for COPD and chronic interstitial lung disease. Subsegmental changes left lung base most typical of scar or atelectasis.
[2022-01-21] MEDS ORDERED: CLOPIDOGREL 75 MG TAB ONE (14:20)
[2022-01-21 14:21] LABS: INR 0.9 (<1.2); Partial Thromboplastin Time 22.1 sec (22.0-30.0); Prothrombin Time 9.9 sec (9.0-12.0)
[2022-01-21 14:23] LABS: Calcium 8.7 mg/dL (8.4-10.2); Potassium 4.5 mmol/L (3.5-5.1); Total Bilirubin 0.5 mg/dL (0.2-1.3); Total Protein 6.6 g/dL (6.3-8.2)
[2022-01-21] MEDS: HEPARIN SODIUM 1,000 UN/ML (10ML VL) IV ONE ×4 (14:23→14:56)
[2022-01-21] MEDS ORDERED: CLOPIDOGREL 75 MG TAB PO ONE (14:23)
[2022-01-21] MEDS: NITROGLYCERIN 1000MCG/10ML SYRINGE INTRACORON ONE ×3 (14:29→14:45)
[2022-01-21] MEDS: PHENYLEPHRINE-0.9% NACL SYG 1,000 MCG/10 ML SYRINGE IV ONE ×2 (14:33→14:45)
[2022-01-21] MEDS ORDERED: IOPAMIDOL-370 125ML BTL INJ ONE (14:58)
[2022-01-21 15:16] LABS: Glucose,Whole Blood 130 mg/dL (70-110)
[2022-01-21] MEDS: NICOTINE 14MG/24HR PATCH TRANSDERM SCH (19:07)
[2022-01-21] MEDS: SODIUM CHLORIDE 0.9% 1,000 ML in EMPTY BAG 1 BAG IV SCH (20:00)
[2022-01-21] MEDS ORDERED: ATROPINE SULFATE 0.1 MG/ML 10ML SYRINGE IV PRN (23:05)
[2022-01-21] MEDS ORDERED: MAG HYDROX/AL HYDROX/SIMETH 30 ML CUP PO PRN (23:05)
[2022-01-21] MEDS ORDERED: NITROGLYCERIN SL TABS 0.4 MG TAB SUBLINGUAL PRN (23:05)
[2022-01-21] MEDS ORDERED: RX INFO: IV CONTRAST WAS GIVEN 1 EACH MISC MISCELLANE PRN (23:05)
--- NOTE | 2022-01-21 23:17 | P.PRCINT ---
Percutaneous Coronary Int. - Percutaneous Coronary Intervention Percutaneous Coronary Intervention: PROCEDURES PERFORMED: Right coronary angiography, PCI of proximal RCA with a 3.0 x 15mm Xience HAILEY, post dilated proximally with a 3.5 NC balloon INDICATION: STEMI PROCEDURE: After the risks, benefits and alternatives of the above mentioned procedure explained in detail with the patient, informed consent was obtained. Patient had already been taken to the catheterization lab and prepped and draped in usual fashion. A 6-Arabic sheath had already been placed in the right femoral artery. Diagnostic catheterization had been performed by my partner showing mild disease on the left and a 99% proximal RCA stenosis with thrombus. The decision was made to perform PCI of the RCA. Heparin was given for ACT > 250. A 6FR AL 0.75 guide was used to engage the RCA. A 0.014 BMW wire was advanced into the distal RCA. A 2.5 x 12mm balloon was used to predilate the lesion. Next a 3.0 x 15mm Xience HAILEY was placed in the proximal RCA. The stent was post dilated with a 3.5 NC balloon. The wire was pulled and final angiograms were performed. Preintervention there was RADHIKA 2 flow and 99% stenosis and post intervention there was 0% stenosis and RADHIKA 3 flow. Right femoral angiogram showed adequate puncture site however heavy calcification around the site of catheter and therefore felt best treated with manual pull. The sheath was sutured in place to be pulled later. The patient tolerated the procedure well. Patient was transported back to the post catheterization holding area in stable condition. Conscious Sedation: Patient was monitored under the direct supervision of vision of myself for conscious sedation using Versed and fentanyl for a total duration of 15 minutes HEMODYNAMICS: Aorta: 132/81 FINAL IMPRESSION: 1. CAD with 99% proximal RCA stenosis and otherwise mild disease of the left system 2. S/p PCI of proximal RCA with a 3.0 x 15mm Xience HAILEY, post dilated proximally with a 3.5 NC balloon PLAN: 1. Aggressive risk factor modification per most recent ACC/AHA guidelines. 2. Continue dual antiplatelets for 12 months with aspirin and Plavix.
--- NOTE | 2022-01-22 01:40 | CC ---
CARDIAC CATHETERIZATION REPORT INDICATION: Acute inferior wall myocardial infarction. PROCEDURE NOTE: After obtaining informed consent, left heart catheterization and coronary angiogram were performed via the right femoral artery using standard Lauren catheters. The patient tolerated the procedure without any obvious immediate complications. He received moderate conscious sedation. Total sedation time was 13 minutes. FINDINGS: 1. HEMODYNAMICS: Left ventricular end-diastolic pressure is 15 mmHg. There is no significant gradient across the aortic valve. 2. LEFT VENTRICULOGRAM: Left ventriculogram is not performed. 3. ANGIOGRAPHIC DATA: a.Left main coronary artery: Left main coronary artery is a normal-sized vessel and is free of stenosis, divides into left anterior descending coronary artery and circumflex coronary artery. LAD and its branches and circumflex coronary artery and its branches are free of significant stenosis. b.Right coronary artery is a large dominant vessel. There is an area of plaque rupture with a focal area of stenosis in the proximal RCA, and there is a 90% stenosis. CONCLUSION: Focal stenosis in the proximal right coronary artery with an area of plaque rupture, which is responsible for the acute inferior wall myocardial infarction. Dr. Rosario will expeditiously proceed with angioplasty and stent placement of the same. MMODL / IJN: [id number] /
--- NOTE | 2022-01-22 01:40 | CONS ---
CONSULTATION CHIEF COMPLAINT: Sudden-onset shortness of breath. HISTORY OF PRESENT ILLNESS: Jimi is an 81-year-old gentleman with no significant past medical history. He is not on any prescription medications, developed sudden onset of diaphoresis, shortness of breath, and not feeling well. EMS was called. An EKG done in the field revealed evidence of acute inferior wall myocardial infarction, and we were called in as part of STEMI alert. At the time of my evaluation of the patient in the emergency room, he appears comfortable at rest. He is not having any chest pain. Pain seems stable. The plan at this stage is to take him for emergent cardiac cath. PAST MEDICAL HISTORY: Negative for hypertension, diabetes, dyslipidemia. MEDICATIONS: None. ALLERGIES: None. FAMILY HISTORY: Negative for premature coronary artery disease. SOCIAL HISTORY: Significant for smoking. There is no history of EtOH abuse or drug abuse. REVIEW OF SYSTEMS: 14 out of 14 review of systems has been performed. Pertinent for as documented. PHYSICAL EXAMINATION: GENERAL: Comfortable at rest. VITAL SIGNS: Stable. CHEST: Reveals good air entry bilaterally. HEART: Reveals first and second heart sounds. No gallop. No murmur. ABDOMEN: Soft and nontender. EXTREMITIES: Did not reveal any edema. Peripheral pulses are palpable. LABORATORY DATA: Labs are not done at this time. His EKG shows acute inferior wall myocardial infarction. ASSESSMENT: Acute inferior wall myocardial infarction. PLAN: Patient will undergo emergent cardiac catheterization. GYPSY / GERHARDN: [id number] /
[2022-01-22] MEDS: ZOLPIDEM 5 MG TAB PO PRN ×2 (02:00→22:15)
[2022-01-22] MEDS: NICOTINE 14MG/24HR PATCH TRANSDERM SCH (08:59)
[2022-01-22] MEDS: ASPIRIN 81 MG PO SCH (08:59)
[2022-01-22] MEDS: METOPROLOL TARTRATE 25 MG TAB PO SCH ×2 (08:59→20:30)
[2022-01-22] MEDS: CLOPIDOGREL 75 MG TAB PO SCH (08:59)
--- NOTE | 2022-01-22 13:10 | P.PN ---
Subjective HISTORY OF PRESENTING ILLNESS Patient is a pleasant 81-year-old male with only significant history of tobacco abuse who presented with diaphoresis shortness breath and "not feeling well ". He has been having some lightheaded episodes over the last few weeks. He was found to have inferior STEMI and taken to the [facility] with a 99% RCA stenosis a nd underwent successful PCI. He has been feeling well since. His right femoral site is clear without hematoma. He was placed on dual antiplatelets. Echocardiogram is pending. PHYSICAL EXAMINATION Vital signs reviewed. CONSTITUTIONAL: No apparent distress. HEENT: Head is normocephalic. Pupils are equal, round. Sclerae anicteric. Mucous membranes of the mouth are moist. No JVD. No carotid bruit. CHEST EXAMINATION: Lungs are clear to auscultation. No chest wall tenderness is noted on palpation or with deep breathing. HEART EXAMINATION: Regular rate and rhythm. S1, S2 heard. No murmurs, gallops or rub. ABDOMEN: Soft, nontender. Positive bowel sounds. EXTREMITIES: 2+ peripheral pulses, no lower extremity edema and no calf tenderness. NEUROLOGIC EXAMINATION: Patient is awake, alert and oriented x3. ASSESSMENT 1. Inferior STEMI status post PCI 01/21 2. Episodes of lightheadedness over the last few weeks 3. Hyperlipidemia 4. Tobacco abuse PLAN Check 2-D echo. Increase activity as tolerated. Continue dual antiplatelets. Tobacco cessation. Hopeful discharge in 24 hours if remains stable. Objective - Vital Signs Vital signs: Vital Signs Temp 98 F 01/22/22 12:00 Pulse 80 01/22/22 13:00 Resp 23 01/22/22 13:00 BP 129/69 01/22/22 13:00 Pulse Ox 97 01/22/22 13:00 FiO2 Intake & Output 01/21/22 01/22/22 01/22/22 18:59 06:59 18:59 Intake Total 1000 1200 775 Output Total 230 650 350 Balance 770 550 425 Weight 72.575 kg 73.7 kg Intake: IV 600 825 525 0.9 NaCl- 825 525 Intake, IV Titration 300 75 Amount IV Fluid Continuation 1, 300 75 000 ml @ 0 mls/hr IV [email or web address] [facility] Rx#:[id number] Oral 100 300 250 Output: Urine 230 650 350 Other: Voiding Method Urinal Urinal Urinal - Labs CBC & Chem 7: 01/21/22 13:25 01/22/22 05:42 Labs: Abnormal Lab Results - Last 24 Hours (Table) 01/21/22 01/21/22 01/21/22 Range/Units 13:25 13:25 13:25 WBC 15.8 H (3.8-10.6) k/uL Neutrophils # 13.5 H (1.3-7.7) k/uL Carbon Dioxide 21 L (22-30) mmol/L Creatinine 1.31 H (0.66-1.25) mg/dL Glucose 189 H (74-99) mg/dL POC Glucose (mg/dL) (70-110) mg/dL Troponin I 0.433 H* (0.000-0.034) ng/mL 01/21/22 Range/Units 15:15 WBC (3.8-10.6) k/uL Neutrophils # (1.3-7.7) k/uL Carbon Dioxide (22-30) mmol/L Creatinine (0.66-1.25) mg/dL Glucose (74-99) mg/dL POC Glucose (mg/dL) 130 H (70-110) mg/dL Troponin I (0.000-0.034) ng/mL
[2022-01-22] MEDS: SODIUM CHLORIDE 0.9% 1,000 ML in EMPTY BAG 1 BAG IV SCH (16:13)
[2022-01-22 17:07] VITALS: BMI 23.3
--- NOTE | 2022-01-22 19:00 | CA ---
Transthoracic Echo Report Name: Jimi Dick Age: 81 Gender: M : 1940 Exam Date: 01/22/2022 13:27 Exam Location: [place] [facility] Ht (in): 71 Wt (lb): 162 Ordering Physician: Britton Rosario DO ([email or web address]) Attending/Referring Phys: Director [employer] Maribell Acevedo RDCS Procedure CPT: Indications: re: LV function Cardiac Hx: cath, 1 stent Technical Quality: Good Contrast 1: Total Dose (mL): Contrast 2: Total Dose (mL): MEASUREMENTS (Male / Female) Normal Values 2D ECHO LV Diastolic Diameter PLAX 3.5 cm 4.2 - 5.9 / 3.9 - 5.3 cm LV Systolic Diameter PLAX 2.7 cm IVS Diastolic Thickness 1.2 cm 0.6 - 1.0 / 0.6 - 0.9 cm LVPW Diastolic Thickness 1.6 cm 0.6 - 1.0 / 0.6 - 0.9 cm LV Relative Wall Thickness 0.8 RV Internal Dim ED PLAX 2.8 cm M-MODE Aortic Root Diameter MM 3.8 cm LA Systolic Diameter MM 2.0 cm LA Ao Ratio MM 0.5 MV E Point Septal Separation 2.9 cm AV Cusp Separation MM 1.6 cm DOPPLER AV Peak Velocity 111.1 cm/s AV Peak Gradient 4.9 mmHg MV Area PHT 4.3 cm??? MR Peak Velocity 124.9 cm/s MR Peak Gradient 6.2 mmHg Mitral E Point Velocity 49.5 cm/s Mitral A Point Velocity 73.7 cm/s Mitral E to A Ratio 0.7 MV Deceleration Time 176.6 ms MV E' Velocity 4.7 cm/s Mitral E to MV E' Ratio 10.5 FINDINGS Left Ventricle .The ejection fraction is visually estimated at 45-50 %. Mildly increased septal wall thickness. Left ventricular cavity size normal. Basal inferolateral is hypokinetic. Right Ventricle The right ventricle is normal in size and function. Right Atrium The right atrium is normal in size. Left Atrium The left atrium is normal in size. Mitral Valve Structurally normal mitral valve without significant stenosis or prolapse. There is mild mitral regurgitation. Aortic Valve Structurally normal aortic valve without significant sclerosis or stenosis. There is no aortic regurgitation. Tricuspid Valve Structurally normal tricuspid valve without significant stenosis. Pulmonary artery systolic pressure is normal. Mild tricuspid regurgitation. Pulmonic Valve Structurally normal pulmonic valve without significant stenosis. There is no pulmonic regurgitation. Pericardium Normal pericardium without effusion. Aorta Normal aortic root dimension. CONCLUSIONS Left ventricular ejection fraction 45-50% Mild LVH Basal inferolateral hypokinesis Mild mitral regurgitation Mild tricuspid regurgitation No pericardial effusion Previewed by: Dr. Britton Rosario DO (Electronically Signed) Final Date: 22 January 2022 18:59
[2022-01-22] MEDS ORDERED: ATORVASTATIN 80 MG TAB PO SCH (21:00)
--- NOTE | 2022-01-23 01:08 | P.HPIM ---
History of Present Illness H&P Date: 01/22/22 Chief Complaint: Chest pressure Patient is a 81-year-old male with a known history of normal pressure hydrocephalus, bladder cancer, hyperlipidemia and currently everyday smoker and medical marijuana use presents to the hospital due to acute ST elevated [place]. Patient had EKG performed by paramedics after they were called for acute onset of dyspnea lightheadedness and chest pressure. Chest pressure associated nausea and diaphoresis. No prior history of coronary disease. Laboratory Reviewed and Patient Was Taken to Cardiac Catheterization. Currently Patient Is Being M onitored in the MICU. Cath Report Showed Focal Stenosis in the Proximal Right Coronary Artery with an Area of Leg Rupture. Patient Is Status Post Stent Placement. Chest X-Ray Showed Correlate for COPD and Chronic Interstitial Lung Disease. Subsegmental Changes Left Lung Base Most Typical of Scar or Atelectasis. Laboratory Data Showed WBC 15.8 Hemoglobin 13.0 and Platelets 253 Sodium 141 Potassium 4.5 Chloride 107 Bicarb Is 21 BUN 18 and Creatinine 1.31 and Blood Sugar Is 189 Troponin 0.433. Liver Enzymes Are Not Elevated. Review of Systems Constitutional: Patient denies any fever or chills . no Generalized weakness. Abdomen: Patient denied any nausea or vomiting or abd. pain Cardiovascular: Patient denies any chest pain or short of breath no palpitations. Respiratory: patient denied any cough is from production. No shortness of breath Neurologic: Patient denied any numbness or tingling headache. Musculoskeletal: Patient denies any complaints of joint swelling or deformity. Skin: Negative Psychiatric: Negative Endocrine: No heat or cold intolerance. No recent weight gain. Genitourinary: No dysuria or hematuria. All other 14 point ROS negative except the above Past Medical History Past Medical History: Cancer, Hyperlipidemia Additional Past Medical History / Comment(s): symptomatic normal pressure hydrocephales, Bladder cancer. pt was having dizziness saw specialist they said pt either had a stroke or effect of pt past etoh History of Any Multi-Drug Resistant Organisms: None Reported Past Surgical History: Appendectomy, Hernia Repair Additional Past Surgical History / Comment(s): shoulder surgery, upper spine spinal fusion. Past Anesthesia/Blood Transfusion Reactions: No Reported Reaction Past Psychological History: Depression Additional Psychological History / Comment(s): R/t health issues Smoking Status: Current every day smoker Past Alcohol Use History: Rare Additional Past Alcohol Use History / Comment(s): 1/2 -1 packs per day Past Drug Use History: Marijuana Additional Drug Use History / Comment(s): Nightly medicinal marijuana - Past Family History Father Family Medical History: Coronary Artery Disease (CAD), Myocardial Infarction ([place]) Medications and Allergies Home Medications Medication Instructions Recorded Confirmed Type Oxybutynin Chloride [Ditropan XL] 10 mg PO DAILY 12/23/19 01/21/22 History Sertraline [Zoloft] 150 mg PO DAILY 12/23/20 01/21/22 History Simvastatin [Zocor] 40 mg PO HS 12/23/20 01/21/22 History Allergies Allergy/AdvReac Type Severity Reaction Status Date / Time No Known Allergies Allergy Verified 01/21/22 15:16 Physical Exam Vitals: Vital Signs Temp Pulse Pulse Resp BP Pulse Ox 01/22/22 12:00 98 F 79 82 H 131/81 98 01/22/22 11:00 63 20 132/76 96 01/22/22 10:00 62 13 131/76 97 01/22/22 09:02 98 01/22/22 09:00 87 14 127/72 97 01/22/22 08:00 98 F 70 19 133/76 96 01/22/22 07:00 88 20 133/76 95 01/22/22 06:00 70 18 126/83 93 L 01/22/22 05:00 78 15 111/56 94 L 01/22/22 04:00 98.3 F 75 13 139/71 95 01/22/22 03:00 85 19 126/69 96 01/22/22 02:00 79 20 128/69 93 L 01/22/22 01:00 79 20 114/66 94 L 01/22/22 00:00 98.2 F 78 16 122/79 95 01/21/22 23:30 75 20 117/75 95 01/21/22 23:00 79 20 140/77 96 01/21/22 22:30 74 17 139/78 95 01/21/22 22:00 75 21 139/80 95 01/21/22 21:30 76 20 140/83 95 01/21/22 21:00 72 20 137/77 97 01/21/22 20:30 80 16 130/73 97 01/21/22 20:00 98.1 F 77 23 137/75 96 01/21/22 19:30 79 20 144/74 95 01/21/22 19:00 73 22 130/73 97 01/21/22 18:30 100 18 114/67 97 01/21/22 18:00 77 21 128/68 97 01/21/22 17:30 92 22 126/84 97 01/21/22 17:00 75 16 123/67 96 01/21/22 16:30 77 10 L 136/73 94 L 01/21/22 16:15 72 14 140/80 94 L 01/21/22 16:00 97.8 F 77 17 123/75 96 01/21/22 15:45 77 12 133/73 97 01/21/22 15:30 77 22 118/73 95 01/21/22 15:15 97.8 F 79 16 118/73 95 01/21/22 15:12 95 01/21/22 13:50 79 78 20 76/29 98 Intake and Output 01/21/22 01/22/22 01/22/22 22:59 06:59 14:59 Intake Total 700 900 600 Output Total 480 400 250 Balance 220 500 350 Intake: IV 225 600 450 0.9 NaCl- 225 600 450 Intake, IV Titration 375 Amount IV Fluid Continuation 1, 375 000 ml @ 0 mls/hr IV [facility][id number] Oral 100 300 150 Output: Urine 480 400 250 Other: Voiding Method Urinal Urinal Urinal Weight 72.575 kg 73.7 kg PHYSICAL EXAMINATION: Patient is lying in the bed comfortably, no acute distress, awake alert and oriented.. HEENT: Normocephalic. Neck is supple. Pupils reactive. Nostrils clear. Oral cavity is moist. Neck reveals no JVD, carotid bruits, or thyromegaly. CHEST EXAMINATION: Trachea is central. Symmetrical expansion. Lung dale clear to auscultation and percussion. CARDIAC: Normal S1, S2 with no gallops. No murmurs ABDOMEN: Soft. Bowel sounds present. Nontender. No organomegaly. No abdominal bruits. Extremities: reveal no edema. No clubbing or cyanosis Neurologically awake, alert, oriented x3 with well-coordinated movements. No focal deficits noted Skin: No rash or skin lesions. Psychiatric: Coperative. Nonsuicidal, Musculoskeletal: No joint swelling or deformity. Normal range of motion. Results CBC & Chem 7: 01/21/22 13:25 01/22/22 05:42 Labs: Abnormal Lab Results - Last 24 Hours (Table) 01/21/22 01/21/22 01/21/22 Range/Units 13:25 13:25 13:25 WBC 15.8 H (3.8-10.6) k/uL Neutrophils # 13.5 H (1.3-7.7) k/uL Carbon Dioxide 21 L (22-30) mmol/L Creatinine 1.31 H (0.66-1.25) mg/dL Glucose 189 H (74-99) mg/dL POC Glucose (mg/dL) (70-110) mg/dL Troponin I 0.433 H* (0.000-0.034) ng/mL 01/21/22 Range/Units 15:15 WBC (3.8-10.6) k/uL Neutrophils # (1.3-7.7) k/uL Carbon Dioxide (22-30) mmol/L Creatinine (0.66-1.25) mg/dL Glucose (74-99) mg/dL POC Glucose (mg/dL) 130 H (70-110) mg/dL Troponin I (0.000-0.034) ng/mL Thrombosis Risk Factor Assmnt - DVT/VTE Prophylaxis DVT/VTE Prophylaxis: Pharmacologic Prophylaxis ordered Assessment and Plan Assessment: Acute Inferior Wall [place] with Plaque Rupture Status Postcardiac Catheter and Stent Placement to RCA Acute kidney injury likely prerenal improved now Leukocytosis likely reactive. Ongoing rehabilitation Medical marijuana use History of bladder cancer Hyperlipidemia Normal pressure hydrocephalus DVT prophylaxis with heparin subcu Plan: Patient is status post cardiac catheterization placement to RCA. Continue with aspirin, statins and Plavix and metoprolol. Continue telemetry monitoring and follow-up closely. Currently patient denies any complaints of chest pressure or pain. Time with Patient: Greater than 30
[2022-01-23 06:26] LABS: Basophils % (A) 0 %; Eosinophils # (A) 0.3 k/uL (0-0.7); Eosinophils % (A) 3 %; HCT 37.7 % (39.0-53.0); HGB 12.8 gm/dL (13.0-17.5); Lymphocytes # (A) 1.7 k/uL (1.0-4.8); Lymphocytes % (A) 16 %; MCH 31.9 pg (25.0-35.0); MCHC 33.8 g/dL (31.0-37.0); MCV 94.4 fL (80.0-100.0); Mean Platelet Volume 7.5; Monocytes # (A) 0.5 k/uL (0-1.0); Monocytes % (A) 5 %; Neutrophils # (A) 7.7 k/uL (1.3-7.7); Neutrophils % (A) 74 %; Platelet Count 186 k/uL (150-450); RDW 14.1 % (11.5-15.5); WBC 10.4 k/uL (3.8-10.6)
[2022-01-23 06:39] LABS: African American GFR (CKD) >90 (>60 ml/min/1.73 sqM); Anion Gap 8 mmol/L; Blood Urea Nitrogen 15 mg/dL (9-20); Calcium 8.6 mg/dL (8.4-10.2); Carbon Dioxide 25 mmol/L (22-30); Chloride 106 mmol/L (98-107); Glucose 96 mg/dL (74-99); Non-African American GFR(CKD) 79 (>60 ml/min/1.73 sqM); Potassium 3.9 mmol/L (3.5-5.1); Sodium 139 mmol/L (137-145)
[2022-01-23] MEDS: SODIUM CHLORIDE 0.9% 1,000 ML in EMPTY BAG 1 BAG IV SCH (07:33)
[2022-01-23] MEDS: ASPIRIN 81 MG PO SCH (07:57)
[2022-01-23] MEDS: CLOPIDOGREL 75 MG TAB PO SCH (07:57)
[2022-01-23] MEDS: METOPROLOL TARTRATE 25 MG TAB PO SCH (07:57)
[2022-01-23] MEDS: NICOTINE 14MG/24HR PATCH TRANSDERM SCH (07:58)
[2022-01-23] MEDS ORDERED: HEPARIN SODIUM,PORCINE/PF 5,000 UNIT/0.5 ML SYRINGE SQ SCH (08:00)
[2022-01-23 12:20] VITALS: BP 129/84; PULSE 70; RESP 8; TEMP 98.6
--- NOTE | 2022-01-23 13:20 | P.PN ---
Subjective HISTORY OF PRESENTING ILLNESS Patient is a pleasant 81-year-old male with only significant history of tobacco abuse who presented with diaphoresis shortness breath and "not feeling well ". He has been having some lightheaded episodes over the last few weeks. He was found to have inferior STEMI and taken to the [facility] with a 99% RCA stenosis a nd underwent successful PCI. He has been feeling well since. His right femoral site is clear without hematoma. He was placed on dual antiplatelets. Echocardiogram is pending. 01/23 Patient seen and examined. Patient denies any further chest pain or pressure. Echocardiogram performed with EF 45-50% with basal inferolateral hypokinesis. PHYSICAL EXAMINATION Vital signs reviewed. CONSTITUTIONAL: No apparent distress. HEENT: Head is normocephalic. Pupils are equal, round. Sclerae anicteric. Mucous membranes of the mouth are moist. No JVD. No carotid bruit. CHEST EXAMINATION: Lungs are clear to auscultation. No chest wall tenderness is noted on palpation or with deep breathing. HEART EXAMINATION: Regular rate and rhythm. S1, S2 heard. No murmurs, gallops or rub. ABDOMEN: Soft, nontender. Positive bowel sounds. EXTREMITIES: 2+ peripheral pulses, no lower extremity edema and no calf t enderness. NEUROLOGIC EXAMINATION: Patient is awake, alert and oriented x3. ASSESSMENT 1. Inferior STEMI status post PCI 01/21 2. Episodes of lightheadedness over the last few weeks 3. Hyperlipidemia 4. Tobacco abuse 5. 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 Has been stable on dual antiplatelets and beta colton. Okay for discharge home on current medical regimen. Objective - Vital Signs Vital signs: Vital Signs Temp 98.6 F 01/23/22 12:00 Pulse 70 01/23/22 12:00 Resp 8 L 01/23/22 12:00 BP 129/84 01/23/22 12:00 Pulse Ox 95 01/23/22 12:00 FiO2 Intake & Output 01/22/22 01/23/22 01/23/22 18:59 06:59 18:59 Intake Total 1075 Output Total 750 525 Balance 325 -525 Weight 73.7 kg 74 kg Intake: IV 825 0.9 NaCl- 825 Oral 250 Output: Urine 750 525 Other: Voiding Method Urinal Urinal Urinal - Labs CBC & Chem 7: 01/23/22 05:32 01/23/22 05:32 Labs: Abnormal Lab Results - Last 24 Hours (Table) 01/23/22 Range/Units 05:32 RBC 4.00 L (4.30-5.90) m/uL Hgb 12.8 L (13.0-17.5) gm/dL Hct 37.7 L (39.0-53.0) %
== END 2022-01-23 15:45 | disposition home or self-care (01) | DRG 247 ==
LOC: EC 13:49 → 2SICU 13:52
PROVIDERS: ADMIT Hospitalist; ATTEND Hospitalist
PROC: 027034Z Dilation of Coronary Artery, One Artery with Drug-eluting Intraluminal Device, Percutaneous Approach (ICD-10-PCS; principal; 2022-01-21 17:55)
PROC: B2111ZZ Fluoroscopy of Multiple Coronary Arteries using Low Osmolar Contrast (ICD-10-PCS; 2022-01-21 17:55)
PROC: 4A023N7 Measurement of Cardiac Sampling and Pressure, Left Heart, Percutaneous Approach (ICD-10-PCS; 2022-01-21 17:55)
DX: I21.11 ST elevation (STEMI) myocardial infarction involving right coronary artery (principal); N17.9 Acute kidney failure, unspecified; G91.2 (Idiopathic) normal pressure hydrocephalus; I42.9 Cardiomyopathy, unspecified; J98.11 Atelectasis; I25.10 Atherosclerotic heart disease of native coronary artery without angina pectoris; E78.5 Hyperlipidemia, unspecified; F32.A Depression, unspecified; D72.829 Elevated white blood cell count, unspecified; F17.210 Nicotine dependence, cigarettes, uncomplicated; Z71.6 Tobacco abuse counseling; Z79.899 Other long term (current) drug therapy; Z85.51 Personal history of malignant neoplasm of bladder; Z98.1 Arthrodesis status; Z82.49 Family history of ischemic heart disease and other diseases of the circulatory system
CPT/HCPCS: 36415; 71045; 80048; 80053; 82565; 83735; 84484; 85025; 85610; 85730; 93005; 93306; 93458; 94760; 99285